=== PATIENT | male | born 1945 | race Caucasian/White ===

== ENCOUNTER 2024-10-22 11:55 | Outpatient (REF) | payer MEDICARE, OTHER, SELFPAY ==
[2024-10-22 15:26] LABS: Influenza A PCR NEGATIVE (Negative); Influenza B PCR NEGATIVE (Negative); Resp Syncy Virus RNA Qual PCR POSITIVE (Negative); SARS COV2 PCR INHOUSE NEGATIVE (Negative)
== END 2024-10-22 11:56 | disposition home or self-care (01) ==
LOC: HO.LAB 11:55
PROVIDERS: PCP Internal Medicine; Visit Provider Physician Assistant
DX: J06.9 Acute upper respiratory infection, unspecified (principal)
CPT/HCPCS: 0241U; 99202

== ENCOUNTER 2024-10-22 11:55 | Outpatient (AMB) | payer MEDICARE, OTHER, SELFPAY ==
--- NOTE | 2024-10-22 12:07 | AM.OFFWIN_ITS ---
Intake Vital Signs 10/22/24 12:17 BP 130/70 Blood Pressure Location Lt brachial Position Sitting Pulse 60 Pulse Source Pulse Oximeter Temp 98.0 F Temp Source Oral Pulse Oximetry (%) 97 Intake Visit Reasons: EP-chest congestion, head congestion Intake Note: pt is here for chest and head congestion Patient Tobacco Use Status: Never used Tobacco Accompanied by: Self / Same As Patient Allergies No Known Allergies Allergy (Verified 10/22/24 12:11) Do you need a note to return to daycare/school/sports/work: No HPI HPI Comments History of Present Illness Details History The patient is an 79-year-old male presenting with symptoms of a possible upper respiratory infection. The symptoms began approximately 3 to 3.5 days ago and include nasal congestion and a persistent cough productive of thick orange- colored phlegm. The patient denies shortness of breath, wheezing, ear pain, or sinus pain. There is no history of asthma or chronic obstructive pulmonary disease. No fever, fatigue, or headaches have been reported. The patient has been self-treating with an antihistamine and is also on medication for essential hypertension. Care consideration is given to medications which might elevate blood pressure; hence, alternatives like Coricidin were discussed. No [id number] COVID-19 testing has been performed, though the patient?s spouse has tested negative for COVID-19 after exhibiting similar symptoms. Physical Exam General: Cooperative, healthy appearing, comfortable and no acute distress Orientation/consciousness: Patient oriented x3 Limitations: No limitations Head: Normal to inspection Ears: Hearing grossly normal bilaterally, external ears normal and TM's normal bilaterally with some cerumen Nose: Normal external nose present, Normal nares present and Nasal discharge present Face and sinus: Normal facial exam and Yes sinuses nontender Mouth: Normal oral and palatal mucosa present and moist mucous membranes Throat: Yes tonsils normal, Yes uvula midline. Posterior oropharynx erythema Eyes: Appearance normal, both eyes and all related structures Neck: Normal visual inspection Respiratory: Clear to auscultation bilaterally. Normal respiratory effort, able to speak in complete sentences, Actively coughing, no respiratory distress, not tachypneic, no tripod positioning and no use of accessory muscles Cardiovascular: Regular rate and rhythm. Normal S1 and S2 Skin: No rashes or lesions noted Neuro: Patient oriented x3 Extremities: Normal to inspection and Yes no clubbing, cyanosis or edema PFSH Social History Patient Tobacco Use Status: Never used Tobacco Review of Systems Const All systems reviewed & are unremarkable except as noted in HPI and below Physical Exam Vital Signs: Last Vital Signs Temp 98.0 F 10/22/24 12:17 Pulse 60 10/22/24 12:17 BP 130/70 10/22/24 12:17 Pulse Ox 97 10/22/24 12:17 Assessment & Plan Assessment & Plan (1) URI, acute: Code(s): J06.9 - Acute upper respiratory infection, unspecified Plan: - Assess viral etiology by testing for influenza, COVID-19, and RSV. - Consider Coricidin as a decongestant, as it is more appropriate for patients with hypertension. - Advise supportive care including hydration, rest, and use of [id number] medications for symptom relief. - Await results of viral tests to guide further management. Will contact patient with results. - A chest X-ray has been ordered if if symptoms worsen markedly, pt can come in and get it done. Patient was informed and verbally consented to the use of an ambient scribe for clinic note documentation during this visit Orders: Orders SARS-CoV2/FLU/RSV Today J06.9 - Acute upper respiratory infection, unspecified XR chest 2V Today R05.9 - Cough, unspecified Coding Level of Care Code New Pt Level 4 (59992) Diagnoses URI, acute J06.9
[2024-10-22 12:17] VITALS: BP 130/70; PULSE 60; TEMP 36.7; O2SAT 97
== END 2024-10-22 12:29 | disposition home or self-care (01) ==
PROVIDERS: PCP Internal Medicine; Visit Provider Physician Assistant
DX: J06.9 Acute upper respiratory infection, unspecified (principal)